=== PATIENT | female | born 1970 ===

== ENCOUNTER 2019-01-11 09:51 | Emergency (ER) | payer OTHER, SELFPAY ==
[2019-01-11 09:51] VITALS: BMI 27.8
[2019-01-11 10:03] VITALS: TEMP 99.4
[2019-01-11] MEDS ORDERED: Lidocaine 5% Patch TD STA (11:11)
[2019-01-11] MEDS ORDERED: Lidocaine 5% Patch TD ONE (11:36)
[2019-01-11 12:12] VITALS: BP 130/81; PULSE 67; RESP 18; O2SAT 100
--- NOTE | 2019-01-11 12:27 | C.PDOC ---
History Of Present Illness Patient is a 48 year old female, with a PMHx of sciatica, who presents to the ED c/o right back and right hip pain radiating to the right groin that began 1 day ago and has worsened today. Patient states that the pain is worse with movement and occasionally feels tingling in her leg. She denies any trauma, fall, numbness, weakness, saddle anesthesiia, and bowel or bladder incontinence. Time Seen by Provider: 01/11/19 11:01 Chief Complaint (Nursing): Lower Extremity Problem/Injury History Per: Patient History/Exam Limitations: no limitations Onset/Duration Of Symptoms: Days (1) Current Symptoms Are (Timing): Still Present Recent travel outside of the [place]: No Additional History Per: Patient Past Medical History Reviewed: Historical Data, Nursing Documentation, Vital Signs Vital Signs: Last Vital Signs Temp 99.4 F 01/11/19 10:02 Pulse 67 01/11/19 12:11 Resp 18 01/11/19 12:11 BP 130/81 01/11/19 12:11 Pulse Ox 100 01/11/19 12:11 Primary Care Provider: FAMILY PROVIDER,NO - Medical History PMH: No Chronic Diseases Surgical History: No Surg Hx Family History: States: No Known Family Hx - Social History Hx Alcohol Use: Yes Hx Substance Use: No - Immunization History Hx Tetanus Toxoid Vaccination: No Hx Influenza Vaccination: No Hx Pneumococcal Vaccination: No Review Of Systems Constitutional: Negative for: Fever, Chills Gastrointestinal: Negative for: Vomiting, Abdominal Pain Genitourinary: Negative for: Incontinence Musculoskeletal: Positive for: Back Pain (right back), Leg Pain (right leg radiating to right groin ) Skin: Negative for: Bruising Neurological: Positive for: Other (occasional tingling in right leg). Negative for: Weakness, Numbness Physical Exam - Physical Exam Appears: Non-toxic, In Acute Distress (due to pain), Other (crying) Skin: Warm, Dry Head: Atraumatic, Normacephalic Neck: Normal ROM, No Midline Cervical Tenderness, Supple Back: No Vertebral Tenderness, No Other (midline or lumbar tenderness) Extremity: Tenderness (mild tenderness in right sciatic notch and in right inguinal area. tenderness worse with rotaion of right hip) Pulses: Left Femoral: Normal, Right Femoral: Normal, Left Dorsalis Pedis: No rmal, Right Dorsalis Pedis: Normal Neurological/Psych: Oriented x3, Normal Speech, Normal Cognition, Normal Motor, Normal Sensation ED Course And Treatment O2 Sat by Pulse Oximetry: 100 (on RA ) Pulse Ox Interpretation: Normal Medical Decision Making Medical Decision Making: Plan: Tylenol 975mg PO Toradol 30mg IM pt with decreased pain after toradol and tylenol. f.u clinc, recommended to pt physical therapy Disposition Counseled Patient/Family Regarding: Diagnosis, Need For Followup, Rx Given - Disposition Referrals: [facility] [Outside] [facility] [Outside] Disposition: HOME/ ROUTINE Disposition Time: 12:27 Condition: IMPROVED Additional Instructions: Por favor, tome ibuprofeno y tylenol segn lo prescrito. Usted puede mohamud relajante muscular cada 8 horas si en [place] casa le da sueo. De lo contrario, tmate a la hora de acostarte. Seguimiento en clnica mdica. 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 - Scribe Statement The provider has reviewed the documentation as recorded by the Dwight Nelson All medical record entries made by the Jamesiblori were at my direction and personally dictated by me. I have reviewed the chart and agree that the record accurately reflects my personal performance of the history, physical exam, medical decision making, and the department course for this patient. I have also personally directed, reviewed, and agree with the discharge instructions and disposition.
== END 2019-01-11 12:33 | disposition home or self-care (01) ==
LOC: C.ER 09:51
DX: S39.011A Strain of muscle, fascia and tendon of abdomen, initial encounter (principal); X58.XXXA Exposure to other specified factors, initial encounter
CPT/HCPCS: 96372; 99284; J1885